=== PATIENT | female | born 1990 | race Caucasian/White ===

== ENCOUNTER 2017-05-25 11:49 | Emergency (ER) | payer SELFPAY ==
--- NOTE | 2017-05-25 12:03 | ER Document Report ---
ED Medical Screen (RME) - General Chief Complaint: Abdominal Pain Stated Complaint: ABDOMINAL PAIN Time Seen by Provider: 05/25/17 12:01 Notes: Patient says she is having burning and itching with urinating but it has been going on for several weeks. She has some lower abdominal pain, as well. Her lower back hurts on both sides. Patient says that she was seen in an emergency room in [place] 2 weeks ago and told him she had the same symptoms and they prescribed a medication which turned her urine all range that she took twice a day for 7 days. She only got that one medication and says they did not check her urinalysis when she was seen that visit. She says her symptoms have not shown any improvement. Says that she has frequent UTIs, as many as 5 a month! No abdominal surgeries. On no regular medications. LMP 1-1/2 weeks ago. Abdomen is soft and nontender anywhere. TRAVEL OUTSIDE OF THE [place] IN LAST 30 DAYS: No - Related Data Allergies/Adverse Reactions: No Known Allergies Allergy (Verified 05/25/17 11:50) Home Medications: Current Home Medications No Home Medications 05/25/17 [History] Physical Exam - Vital signs Vitals: Temp Pulse Resp BP Pulse Ox 98.5 F 114 H 14 123/75 98 05/25/17 11:53 05/25/17 11:53 05/25/17 11:53 05/25/17 11:53 05/25/17 11:53 Course - Vital Signs Vital signs: Temp Pulse Resp BP Pulse Ox 98.5 F 114 H 14 123/75 98 05/25/17 11:53 05/25/17 11:53 05/25/17 11:53 05/25/17 11:53 05/25/17 11:53
[2017-05-25 12:26] LABS: APPEARANCE,URINE SLIGHTLY-CLOUDY; BILIRUBIN,URINE NEGATIVE (NEGATIVE); GLUCOSE, URINE NEGATIVE (NEGATIVE); KETONES,URINE TRACE mg/dL (NEGATIVE); LEUKOCYTE ESTERASE,URINE NEGATIVE (NEGATIVE); NITRITE,URINE NEGATIVE (NEGATIVE); PROTEIN,URINE NEGATIVE (NEGATIVE); URINE SPECIFIC GRAVITY 1.026; UROBILINOGEN,URINE NEGATIVE mg/dL (<2.0)
--- NOTE | 2017-05-25 12:54 | ER Document Report ---
ED General - General Chief Complaint: Abdominal Pain Stated Complaint: ABDOMINAL PAIN Time Seen by Provider: 05/25/17 12:01 TRAVEL OUTSIDE OF THE [place] IN LAST 30 DAYS: No - HPI Patient complains to provider of: Patient coming in for dysuria Notes: Patient complains of burning with urination. Patient states was evaluated in [place] a few days ago started on the pill that made her urine change color patient states she did have improvement then worsening symptoms. Denies any fevers chills nausea vomiting diarrhea. Patient says she did also take an antibiotic she does not know the name of it completed antibiotic. Patient states continues to have dysuria. Patient does have a history of genital herpes. Patient states she does have some sites of herpes outbreak. Patient states she has acyclovir at home however she has not started this medication. Patient states currently sitting sexually active with only 1 partner. Denies any vaginal discharge. - Related Data Allergies/Adverse Reactions: No Known Allergies Allergy (Verified 05/25/17 11:50) Home Medications: Current Home Medications No Home Medications 05/25/17 [History] Past Medical History - Social History Smoking Status: Current Some Day Smoker Chew tobacco use (# tins/day): No Frequency of alcohol use: Occasional Drug Abuse: None Family History: Reviewed & Not Pertinent Patient has suicidal ideation: No Patient has homicidal ideation: No Renal/ Medical History: Denies: Hx Peritoneal Dialysis Review of Systems - Review of Systems Constitutional: No symptoms reported EENT: No symptoms reported Cardiovascular: No symptoms reported Respiratory: No symptoms reported Gastrointestinal: No symptoms reported Genitourinary: Dysuria Female Genitourinary: No symptoms reported Musculoskeletal: No symptoms reported Skin: No symptoms reported Hematologic/Lymphatic: No symptoms reported Neurological/Psychological: No symptoms reported -: Yes All other systems reviewed and negative Physical Exam - Vital signs Vitals: Temp Pulse Resp BP Pulse Ox 98.5 F 114 H 14 123/75 98 05/25/17 11:53 05/25/17 11:53 05/25/17 11:53 05/25/17 11:53 05/25/17 11:53 Interpretation: Normal - General General appearance: Appears well, Alert - HEENT Head: Normocephalic, Atraumatic Eyes: Normal Pupils: PERRL - Respiratory Respiratory status: No respiratory distress Chest status: Nontender Breath sounds: Normal Chest palpation: Normal - Cardiovascular Rhythm: Regular Heart sounds: Normal auscultation Murmur: No - Abdominal Inspection: Normal Distension: No distension Bowel sounds: Normal Tenderness: Nontender Organomegaly: No organomegaly - Genitourinary Notes: Patient deferred - Back Back: Normal, Nontender - Extremities General upper extremity: Normal inspection, Nontender, Normal color, Normal ROM , Normal temperature General lower extremity: Normal inspection, Nontender, Normal color, Normal ROM , Normal temperature, Normal weight bearing. No: Elo's sign - Neurological Neuro grossly intact: Yes Cognition: Normal Orientation: AAOx4 [place] Coma Scale Eye Opening: Spontaneous [place] Coma Scale Verbal: Oriented [place] Coma Scale Motor: Obeys Commands [place] Coma Scale Total: 15 Speech: Normal Motor strength normal: LUE, RUE, LLE, RLE Sensory: Normal - Psychological Associated symptoms: Normal affect, Normal mood - Skin Skin Temperature: Warm Skin Moisture: Dry Skin Color: Normal Course - Re-evaluation Re-evalutation: 05/25/17 17:05 Patient coming in for dysuria. Patient's urinalysis not show any signs of or infection. Urine culture was sent. With the patient's history of genital herpes with signs of an outbreak and did explain to patient more likely she may have a vesicle that is near the urethra causing burning. Did offer pelvic examination however patient declined. Did offer gonorrhea chlamydia testing patient declined patient states she is in a monogamous relationship not worried about STDs. Patient otherwise looks stable for discharge home explained patient take Tylenol Motrin for pain control. Patient was encouraged to start her acyclovir - Vital Signs Vital signs: Temp Pulse Resp BP Pulse Ox 98.6 F 76 16 116/67 99 05/25/17 13:05 05/25/17 13:05 05/25/17 13:05 05/25/17 13:05 05/25/17 13:05 - Laboratory Laboratory results interpreted by me: 05/25/17 12:07 Urine Ketones TRACE H Discharge - Discharge Clinical Impression: Dysuria Diarrhea Qualifiers: Diarrhea type: unspecified type Qualified Code(s): R19.7 - Diarrhea, unspecified Condition: Good Disposition: HOME, SELF-CARE Instructions: Abdominal Pain ([facility]), Diarrhea, Nonspecific ([facility]) Additional Instructions: Your urinalysis did not show any signs of infection today. With your history of genital herpes he may have a slight herpes outbreak around urethra causing the burning. I recommend taking Tylenol Motrin for your pain. Continue to eat yogurt to help out with your diarrhea he may also try to increase fiber to help out with diarrhea. Return to ER symptoms worsen.
[2017-05-25 13:06] VITALS: BP 116/67
== END 2017-05-25 13:05 | disposition home or self-care (01) ==
LOC: ER 11:49
DX: A60.00 Herpesviral infection of urogenital system, unspecified (principal); R30.0 Dysuria; R19.7 Diarrhea, unspecified; F17.200 Nicotine dependence, unspecified, uncomplicated
CPT/HCPCS: 81001; 81025; 87086; 99284

== ENCOUNTER 2018-03-13 13:26 | Emergency (ER) | payer SELFPAY ==
[2018-03-13 15:04] LABS: AMORPHOUS SEDIMENT,URINE 1+ /HPF; APPEARANCE,URINE CLOUDY; BILIRUBIN,URINE NEGATIVE (NEGATIVE); COLOR,URINE YELLOW; GLUCOSE, URINE NEGATIVE (NEGATIVE); KETONES,URINE 20 mg/dL (NEGATIVE); LEUKOCYTE ESTERASE,URINE TRACE (NEGATIVE); NITRITE,URINE NEGATIVE (NEGATIVE); PROTEIN,URINE NEGATIVE (NEGATIVE); URINE SPECIFIC GRAVITY 1.019; UROBILINOGEN,URINE NEGATIVE mg/dL (<2.0)
--- NOTE | 2018-03-13 15:19 | ER Document Report ---
HPI - HPI Pain Level: 2 Notes: Patient is a 27-year-old female who presents with chief complaint of burning with urination for the last 5 days. Patient denies any frequency urgency. Denies any vaginal discharge. Denies any abdominal pain, pelvic pain or flank pain. Patient states that she knows she has a urinary tract infection. - URINARY Urinary: REPORTS: Dysuria, Urgency, Frequency - REPRODUCTIVE Reproductive: DENIES: : Past Medical History - General Information source: Patient - Social History Smoking Status: Current Every Day Smoker Frequency of alcohol use: None Drug Abuse: Marijuana Family History: Reviewed & Not Pertinent Patient has suicidal ideation: No Patient has homicidal ideation: No - Medical History Medical History: Negative Renal/ Medical History: Denies: Hx Peritoneal Dialysis Surgical Hx: Negative - Immunizations Immunizations up to date: Yes Vertical Provider Document - CONSTITUTIONAL Notes: PHYSICAL EXAMINATION: GENERAL: Well-appearing, well-nourished and in no acute distress. HEAD: Atraumatic, normocephalic. EYES: Pupils equal round extraocular movements intact, conjunctiva are normal. ENT: Nares patent NECK: Normal range of motion LUNGS: No respiratory distress Genitourinary: No CVA tenderness. Musculoskeletal: Normal range of motion NEUROLOGICAL: Normal speech, normal gait. PSYCH: Normal mood, normal affect. SKIN: Warm, Dry, normal turgor, no rashes or lesions noted. - INFECTION CONTROL TRAVEL OUTSIDE OF THE [place] IN LAST 30 DAYS: No Course - Re-evaluation Re-evalutation: Urinalysis with trace leukocyte Estrace. Patient is adamant that she has a urinary tract infection patient's physical examination is benign and patient has no CVA tenderness. Patient will be placed on a short course of antibiotics for cystitis. Urine culture will be ordered. Patient will follow up with her primary care provider. - Vital Signs Vital signs: Temp Pulse Resp BP Pulse Ox 98.6 F 70 16 120/78 99 03/13/18 13:35 03/13/18 13:35 03/13/18 13:35 03/13/18 13:35 03/13/18 13:35 - Laboratory Laboratory results interpreted by me: 03/13/18 14:45 Urine Ketones 20 H Ur Leukocyte Esterase TRACE H Discharge - Discharge Clinical Impression: Dysuria Condition: Stable Disposition: HOME, SELF-CARE Additional Instructions: URINARY TRACT INFECTION: Your evaluation indicates that you have a urinary tract infection. This is due to germs growing in the bladder. This is a common problem. This infection usually responds quickly to antibiotics. Your antibiotic should be taken exactly as prescribed. Drink plenty of fluids -- three to four quarts a day. Occasionally, a bladder anesthetic will be prescribed to help stop the feeling of urgency until the antibiotic has a chance to clear the infection. This may cause your urine to be dark orange. Certain urine infections require a culture. If the doctor obtained a culture, the results will be back in two days. You should call to see if a change in treatment is needed. A repeat urinalysis after you finish treatment is often recommended. The physician will let you know if further testing is required. Call the doctor if you develop fever, chills, flank pain, inability to urinate, or blood in the urine. ANTIBIOTIC THERAPY: You have been given an antibiotic prescription. It's important that you take all the medication, unless instructed otherwise by your physician. Failure to complete the entire course can result in relapse of your condition. Common side effects of antibiotics include nausea, intestinal cramping, or diarrhea. Women may develop vaginal yeast infections, and babies can get yeast (thrush) in the mouth following the use of antibiotics. Contact your physician if you develop significant side effects from this medication. Allergy to this antibiotic can result in hives, wheezing, faintness, or itching. If symptoms of allergy occur, stop the medication and call the doctor. CEPHALEXIN: The antibiotic you've been prescribed is a member of the cephalosporin class. This type of antibiotic covers a wide variety of infections, including those of the skin, lungs, and urinary tract. It's useful for staph infections. This antibiotic is slightly similar to the penicillin family. In rare cases , a person who is allergic to penicillin will also be allergic to this medication. If you have had a severe allergic reaction to penicillin, and have not taken this antibiotic since that time, notify your doctor. Antibiotics which cover many germs ("broad spectrum" antibiotics) are more likely to cause diarrhea or "yeast" infections. Women prone to vaginal yeast problems may suffer an attack after taking this antibiotic. In infants, oral thrush (white spots "stuck" on the cheek) or yeast diaper rash may result. See your doctor if these problems occur. Call at once if you develop itching, hives , shortness of breath, or lightheadedness. URINARY ANESTHETIC AGENT: You have been given a medication (Pyridium) for urinary tract discomfort. This medicine numbs the lining of the bladder and urethra, resulting in less pain, burning, and urgency. You may take it as needed, according to instructions. When the symptoms resolve, you can stop this medication (be sure to continue any other medications the doctor has given you). This medicine turns the urine a dark orange. It may stain underwear. Occasionally, it can cause nausea. Return for evaluation if there are any unexpected effects, such as itching, hives, or shortness of breath. FOLLOW-UP CARE: If you have been referred to a physician for follow-up care, call the physician s office for an appointment as you were instructed or within the next two days. If you experience worsening or a significant change in your symptoms, notify the physician immediately or return to the Emergency Department at any time for re-evaluation. Please take medications as prescribed. Increase your fluid intake. We will send your urine for a culture, we will call you if the results are abnormal. Return to the emergency department should you develop flank pain, vomiting, fever or any other symptom that is concerning to you. Prescriptions: Cephalexin Monohydrate [Keflex 500 mg Capsule] 500 mg PO QID #20 capsule Phenazopyridine HCl [Pyridium 100 Mg Tablet] 100 mg PO TID #6 tablet Forms: Return to Work
[2018-03-13 15:45] VITALS: BP 118/75
== END 2018-03-13 15:43 | disposition home or self-care (01) ==
LOC: ER 13:26
DX: R30.0 Dysuria (principal); F17.200 Nicotine dependence, unspecified, uncomplicated
CPT/HCPCS: 81001; 87086; 99283

== ENCOUNTER 2018-06-20 23:36 | Emergency (ER) | payer SELFPAY ==
[2018-06-20 23:55] VITALS: BP 132/78
[2018-06-21] MEDS ORDERED: ACETAMINOPHEN 325 MG TABLET PO ONE (00:55)
[2018-06-21] MEDS ORDERED: ONDANSETRON 4 MG TAB.RAPDIS PO ONE (00:55)
[2018-06-21] MEDS ORDERED: KETOROLAC TROMETHAMINE INJ/PF 30 MG/1 ML SDV IM ONE (00:55)
--- NOTE | 2018-06-21 01:33 | ER Document Report ---
HPI - HPI Time Seen by Provider: 06/21/18 00:45 Pain Level: 5 Notes: Patient is a 27-year-old female no significant past medical history aside from migraines presents the emergency department complaining of dry nonproductive cough that can be harsh in nature at times, right shoulder blade pain with movement of her right arm, body aches, and subjective fever. Patient states that all of her symptoms started over the last day with exception to the right shoulder blade pain which has been ongoing for the last few days without any known injury. Patient states that she has also developed a mild headache and has a history of migraines, but states that this is not as severe as 1 of her typical migraines but is similar. Denies any drug allergies. Patient has tried some [id number] meds with minimal relief. She is still able to eat and drink, but does have a decreased p.o. intake. Patient states that she did have one episode of vomiting. She is urinating normally and having normal bowel movements. No other vaginal discharge, odor, or bleeding. No CP as compared to what was described at [facility]. Denies any headache, fever, head injury, neck pain, changes in vision/speech/mentation/hearing, sore throat, chest pain, palpitations, syncope, shortness of breath, wheeze, dyspnea, abdominal pain, nausea/diarrhea, urinary retention, dysuria, hematuria, loss of control of bowel or bladder, numbness/tingling, saddle anesthesia, muscle paralysis/weakness, or rash. - ROS Systems Reviewed and Negative: Yes All other systems reviewed and negative - REPRODUCTIVE Reproductive: DENIES: : Past Medical History - Social History Smoking Status: Unknown if Ever Smoked Family History: Reviewed & Not Pertinent Renal/ Medical History: Denies: Hx Peritoneal Dialysis - Immunizations Immunizations up to date: Yes Vertical Provider Document - CONSTITUTIONAL Agree With Documented VS: Yes Notes: PHYSICAL EXAMINATION: GENERAL: Well-appearing, well-nourished and in no acute distress. A&Ox4. Answers questions appropriately. HEAD: Atraumatic, normocephalic. EYES: Pupils equal round and reactive to light, extraocular movements intact, sclera anicteric, conjunctiva are normal. ENT: Nares patent and without discharge. oropharynx clear without exudates. No tonsilar hypertrophy or erythema. Moist mucous membranes. No airway compromise. NECK: Normal range of motion, supple without lymphadenopathy. no rigidity/meningismus. Kernig/brudzinski neg. LUNGS: Breath sounds clear to auscultation bilaterally and equal. No wheezes rales or rhonchi. HEART: Regular rate and rhythm without murmurs, rubs, gallops. ABDOMEN: Soft, nontender, nondistended abdomen. No guarding, no rebound. No masses appreciated. Normal bowel sounds present. No CVA tenderness bilaterally. Musculoskeletal: Rt UE: FROM to passive/active. Strength 5+/5. + reproducible tenderness to palp of the medial scapular area and with ROM of the RUE. N/v intact distal. LE's b/l: Elo neg. No asymmetry to LE's. Extremities: No cyanosis, clubbing, or edema b/l. Peripheral pulses 2+. Capillary refill less than 3 seconds. NEUROLOGICAL: Normal speech, normal gait. PSYCH: Normal mood, normal affect. SKIN: Warm, Dry, normal turgor, no rashes or lesions noted. - INFECTION CONTROL TRAVEL OUTSIDE OF THE [place] IN LAST 30 DAYS: No Course - Re-evaluation Re-evalutation: 06/21/18 01:59 Patient is an afebrile, well-hydrated, 27-year-old female who presents to the ED with acute URI, suspect viral. She also has musculoskeletal pain to the rt scapular area that is reproducible and a headache which I suspect to be benign. Vitals are acceptable. PE is otherwise unremarkable for any focal neurological deficits. Cranial nerves grossly intact. No labs or imaging warranted at this time based on H&P. Patient has no significant cardiopulmonary or immunocompromised medical conditions. Patient's lungs are clear to auscultation bilaterally without tachycardia, hypoxia, or tachypnea. Patient is tolerating p.o. without any difficulties. Thoroughly reviewed the risks, benefits, potential side effects, estimated cost without insurance with patient. After thorough review, patient declined Tamiflu at this time. Pt given toradol, tylenol, and zofran. Her PEDERSEN and body aches have significantly improved. Low suspicion for any acute intracranial pathology, meningitis, sepsis, peritonsillar/pharyngeal abscess, respiratory compromise, severe dehydration, or other emergent systemic condition at this time. Patient is aware this condition can change from initial presentation and she needs to monitor symptoms closely. Conservative measures otherwise for symptoms. Recheck with your PCM in 3-5 days. Return to the ED with any worsening/concerning symptoms otherwise as reviewed in discharge. Patient is in agreement. - Vital Signs Vital signs: Temp Pulse Resp BP Pulse Ox 99.4 F 74 22 H 132/78 H 97 06/20/18 23:44 06/20/18 23:44 06/20/18 23:44 06/20/18 23:44 06/20/18 23:44 Discharge - Discharge Clinical Impression: Cough, Viral syndrome Headache Qualifiers: Headache type: unspecified Headache chronicity pattern: acute headache Intractability: not intractable Qualified Code(s): R51 - Headache Condition: Stable Disposition: HOME, SELF-CARE Instructions: Viral Syndrome ([facility]), Headache ([facility]) Additional Instructions: Maintain adequate fluid intake Take meds as directed tylenol/ibuprofen as needed over the counter cold medication as needed for symptoms Humidified air may help Wash your hands regularly Wear a mask when coughing F/u: with your PCM in 3-5 days for a recheck Return to the ED with any worsening symptoms and/or development of fever, headache, changes in behavior/mentation/vision/speech, chest pain, palpitations, syncope, shortness of breath, trouble breathing, abdominal pain, n/v/d, blood in stool/urine, loss of control of bowel/bladder, urinary retention, muscle weakness/paralysis, saddle anesthesia, numbness/tingling, or other worsening symptoms that are concerning to you. Forms: Elevated Blood Pressure Referrals: [facility] [Provider Group] - Follow up as needed [facility] [Provider Group] - Follow up as needed
== END 2018-06-21 02:45 | disposition home or self-care (01) ==
LOC: ER 23:36
DX: B34.9 Viral infection, unspecified (principal); R05 Cough; R51 Headache
CPT/HCPCS: 99283; 96372; S0119; J1885

== ENCOUNTER 2018-06-22 11:48 | Emergency (ER) | payer SELFPAY ==
[2018-06-22 12:03] VITALS: BP 121/80
[2018-06-22] MEDS ORDERED: PROMETHAZINE HCL 25 MG TABLET PO ONE (12:08)
[2018-06-22] MEDS ORDERED: NORMAL SALINE 1000 ML 1,000 ML IV ONE (12:10)
--- NOTE | 2018-06-22 12:10 | ER Document Report ---
ED Medical Screen (RME) - General Chief Complaint: Abdominal Pain Stated Complaint: CHEST PAIN Time Seen by Provider: 06/22/18 12:07 Mode of Arrival: Ambulatory Information source: Patient TRAVEL OUTSIDE OF THE [place] IN LAST 30 DAYS: No - HPI Patient complains to provider of: CP; cough; vomiting Onset: Yesterday - pt with 1-2 day h/o cough, CP. N/V - Related Data Allergies/Adverse Reactions: No Known Allergies Allergy (Verified 06/20/18 23:38) Past Medical History - Social History Chew tobacco use (# tins/day): No Frequency of alcohol use: None Drug Abuse: Marijuana Renal/ Medical History: Denies: Hx Peritoneal Dialysis Psychiatric Medical History: Reports: Hx Depression - Immunizations Immunizations up to date: Yes Physical Exam - Vital signs Vitals: Temp Pulse Resp BP Pulse Ox 100.3 F 105 H 16 121/80 95 06/22/18 12:01 06/22/18 12:01 06/22/18 12:01 06/22/18 12:01 06/22/18 12:01 Course - Vital Signs Vital signs: Temp Pulse Resp BP Pulse Ox 100.3 F 105 H 16 121/80 95 06/22/18 12:01 06/22/18 12:01 06/22/18 12:01 06/22/18 12:01 06/22/18 12:01
--- NOTE | 2018-06-22 12:52 | RADIOLOGY REPORT (SQ) ---
EXAM DESCRIPTION: CHEST 2 VIEWS COMPLETED DATE/TIME: 06/22/2018 12:42 pm REASON FOR STUDY: cough; fever COMPARISON: None. EXAM PARAMETERS: NUMBER OF VIEWS: two views TECHNIQUE: Digital Frontal and Lateral radiographic views of the chest acquired. RADIATION DOSE: NA LIMITATIONS: none FINDINGS: LUNGS AND PLEURA: No opacities, masses or pneumothorax. No pleural effusion. MEDIASTINUM AND HILAR STRUCTURES: No masses or contour abnormalities. HEART AND VASCULAR STRUCTURES: Heart normal size. No evidence for failure. BONES: No acute findings. HARDWARE: None in the chest. OTHER: No other significant finding. IMPRESSION: NO ACUTE RADIOGRAPHIC FINDING IN THE CHEST. TECHNICAL DOCUMENTATION: JOB ID: [id number] [employer]- All Rights Reserved Reading location - IP/workstation name: [email or web address]
[2018-06-22 13:38] LABS: ABSOLUTE LYMPHOCYTES (AUTO) 0.8 10^3/uL (0.5-4.7); ABSOLUTE MONOCYTES (AUTO) 0.5 10^3/uL (0.1-1.4); ABSOLUTE NEUT (AUTO) 4.7 10^3/uL (1.7-8.2); BASOPHILS % (AUTO) 0.2 % (0-2); HEMATOCRIT 37.3 % (36.0-47.0); HEMOGLOBIN 12.7 g/dL (12.0-15.5); LYMPHOCYTES % (AUTO) 12.8 % (13-45); MEAN CORPUSCULAR HEMOGLOBIN 30.8 pg (27.0-33.4); MEAN CORPUSCULAR VOLUME 91 fl (80-97); PLATELET COUNT 158 10^3/uL (150-450); RED BLOOD COUNT 4.12 10^6/uL (3.72-5.28); RED CELL DISTRIBUTION WIDTH 13.3 % (11.5-14.0); TOTAL CELLS COUNTED % (AUTO) 100 %
[2018-06-22 13:44] LABS: APPEARANCE,URINE SLIGHTLY-CLOUDY; BILIRUBIN,URINE SMALL (NEGATIVE); COLOR,URINE YELLOW; GLUCOSE, URINE NEGATIVE (NEGATIVE); KETONES,URINE 80 mg/dL (NEGATIVE); LEUKOCYTE ESTERASE,URINE NEGATIVE (NEGATIVE); NITRITE,URINE NEGATIVE (NEGATIVE); PROTEIN,URINE 30 mg/dL (NEGATIVE); URINE SPECIFIC GRAVITY 1.035
[2018-06-22 13:49] LABS: ALANINE AMINOTRANSFERASE 32 U/L (9-52); ALBUMIN 4.6 g/dL (3.5-5.0); ALKALINE PHOSPHATASE 65 U/L (38-126); ANION GAP 11 (5-19); ASPARTATE AMINO TRANSFERASE 27 U/L (14-36); BILIRUBIN,DIRECT 0.1 mg/dL (0.0-0.4); BILIRUBIN,TOTAL 0.5 mg/dL (0.2-1.3); BLOOD UREA NITROGEN 11 mg/dL (7-20); CALCIUM 9.2 mg/dL (8.4-10.2); CARBON DIOXIDE 23 mmol/L (22-30); CHLORIDE 101 mmol/L (98-107); GLUCOSE 95 mg/dL (75-110); POTASSIUM 3.9 mmol/L (3.6-5.0); SODIUM 135.3 mmol/L (137-145); TOTAL PROTEIN 7.3 g/dL (6.3-8.2)
[2018-06-22 13:53] LABS: A TYPE INFLUENZA AG NEGATIVE (NEGATIVE); B INFLUENZA AG NEGATIVE (NEGATIVE)
[2018-06-22] MEDS ORDERED: KETOROLAC TROMETHAMINE INJ/PF 30 MG/1 ML SDV IV ONE (14:50)
[2018-06-22] MEDS ORDERED: NORMAL SALINE 500 ML IV ONE (14:50)
[2018-06-22] MEDS ORDERED: ONDANSETRON ODT 4 MG TAB (6 TAB/ER DISP) PO PRN (15:14)
--- NOTE | 2018-06-22 15:15 | ER Document Report ---
ED General - General Chief Complaint: Abdominal Pain Stated Complaint: CHEST PAIN Time Seen by Provider: 06/22/18 12:07 Mode of Arrival: Ambulatory Notes: Patient is a 27-year-old female that presents to the emergency department for chief complaint of chills, body aches, cough and thinks she has the flu. Patient states that she started having symptoms on Saturday around 4 PM after getting up for work, she had cough, nausea, vomiting and diarrhea. She states it was all watery, non-bloody, nonbilious vomiting. She is unaware of any sick contacts, did not receive the influenza vaccine this year. She has had aches all over. She had a hard time hydrating herself for the past 2 days, but did not have any vomiting today. She has some abdominal cramping, that she rates currently as a 3 out of 10, in the lower abdomen, that seem to come along with the diarrhea. Past Medical History: Denies chronic medical conditions Past Surgical History: Denies surgical history Social History: Denies tobacco, alcohol or illicit drug use. Family History: Reviewed and noncontributory for presenting illness Allergies: Reviewed, see documented allergy list. REVIEW OF SYSTEMS: Other than noted above, the 12 point review of systems was reviewed with the patient and were negative, all pertinent findings are included in the HPI. PHYSICAL EXAMINATION: Vital signs reviewed, nursing noted reviewed. GENERAL: Patient appears uncomfortable, but in no acute distress HEAD: Atraumatic, normocephalic. EYES: Eyes appear normal, extraocular movements intact, sclera anicteric, conjunctiva are normal. ENT: nares patent, oropharynx clear without exudates. Moist mucous membranes. NECK: Normal range of motion, supple without lymphadenopathy LUNGS: Breath sounds clear to auscultation bilaterally and equal. No wheezes rales or rhonchi. HEART: Regular rate and rhythm without murmurs ABDOMEN: Soft, mild lower abdominal discomfort with palpation bilaterally, normoactive bowel sounds. No rebound, guarding, or rigidity. No masses appreciated. EXTREMITIES: Nontender, good range of motion, no pitting or edema. NEUROLOGICAL: No focal neurological deficits. Moves all extremities spontaneously Motor and sensory grossly intact on exam. PSYCH: Normal mood, normal affect. SKIN: Warm, Dry, normal turgor, no rashes or lesions noted on exposed skin TRAVEL OUTSIDE OF THE [place] IN LAST 30 DAYS: No - Related Data Allergies/Adverse Reactions: No Known Allergies Allergy (Verified 06/20/18 23:38) Past Medical History - General Information source: Patient - Social History Smoking Status: Current Every Day Smoker Chew tobacco use (# tins/day): No Frequency of alcohol use: None Drug Abuse: Marijuana Family History: Reviewed & Not Pertinent Patient has suicidal ideation: No Patient has homicidal ideation: No Renal/ Medical History: Denies: Hx Peritoneal Dialysis Psychiatric Medical History: Reports: Hx Depression - Immunizations Immunizations up to date: Yes Physical Exam - Vital signs Vitals: Temp Pulse Resp BP Pulse Ox 100.3 F 105 H 16 121/80 95 06/22/18 12:06/22/18 12:06/22/18 12:01 06/22/18 12:06/22/18 12:01 Course - Re-evaluation Re-evalutation: Patient seen and examined vital signs reviewed. Laboratory data and imaging were ordered as appropriate for the patient's presenting symptoms and complaint, with consideration of any critical or life threatening conditions that may be associated with their obtained history and exam as noted above. Patient was treated with IV fluids, Phenergan Results were reviewed when available and demonstrated unremarkable blood work, UA was consistent with dehydration, positive for ketones, hCG negative, no evidence of acute infection on blood work, chest x-ray was negative. The patient was re-evaluated and was improved after IV fluids, refused Toradol Evaluation was most consistent with influenza versus viral illness. Advised hydration at home, given Zofran dispense pack and discharged home. Results were discussed with the patient at this point, after careful consid eration I feel that that patient can be discharged from the emergency department, the patient was educated treatments and reasons to return to the emergency department based on their presumed diagnosis as noted above, they were advised to followup with a primary care physician in 2-3 days. Patient was agreeable to plan of care. *Note is created using voice recognition software and may contain spelling, syntax or grammatical errors. Laboratory 06/22/18 06/22/18 06/22/18 13:10 13:10 13:20 WBC 6.0 RBC 4.12 Hgb 12.7 Hct 37.3 MCV 91 MCH 30.8 MCHC 34.0 RDW 13.3 Plt Count 158 Seg Neutrophils % 78.0 Lymphocytes % 12.8 L Monocytes % 9.0 Eosinophils % 0.0 Basophils % 0.2 Absolute Neutrophils 4.7 Absolute Lymphocytes 0.8 Absolute Monocytes 0.5 Absolute Eosinophils 0.0 Absolute Basophils 0.0 Sodium 135.3 L Potassium 3.9 Chloride 101 Carbon Dioxide 23 Anion Gap 11 BUN 11 Creatinine 0.65 Est GFR ( Amer) > 60 Est GFR (Non-Af Amer) > 60 Glucose 95 Calcium 9.2 Total Bilirubin 0.5 Direct Bilirubin 0.1 Neonat Total Bilirubin Not Reportable Neonat Direct Bilirubin Not Reportable Neonat Indirect Bili Not Reportable AST 27 ALT 32 Alkaline Phosphatase 65 Total Protein 7.3 Albumin 4.6 Urine Color Urine Appearance Urine pH Ur Specific [employer] Urine Protein Urine Glucose (UA) Urine Ketones Urine Blood Urine Nitrite Urine Bilirubin Urine Urobilinogen Ur Leukocyte Esterase Urine WBC (Auto) Urine RBC (Auto) U Hyaline Cast (Auto) Squamous Epi Cells Auto Urine Mucus (Auto) Urine Ascorbic Acid Urine HCG, Qual Influenza A (Rapid) NEGATIVE Influenza B (Rapid) NEGATIVE 06/22/18 13:20 WBC RBC Hgb Hct MCV MCH MCHC RDW Plt Count Seg Neutrophils % Lymphocytes % Monocytes % Eosinophils % Basophils % Absolute Neutrophils Absolute Lymphocytes Absolute Monocytes Absolute Eosinophils Absolute Basophils Sodium Potassium Chloride Carbon Dioxide Anion Gap BUN Creatinine Est GFR ( Amer) Est GFR (Non-Af Amer) Glucose Calcium Total Bilirubin Direct Bilirubin Neonat Total Bilirubin Neonat Direct Bilirubin Neonat Indirect Bili AST ALT Alkaline Phosphatase Total Protein Albumin Urine Color YELLOW Urine Appearance SLIGHTLY-CLOUDY Urine pH 5.0 Ur Specific [employer] 1.035 Urine Protein 30 H Urine Glucose (UA) NEGATIVE Urine Ketones 80 H Urine Blood SMALL H Urine Nitrite NEGATIVE Urine Bilirubin SMALL H Urine Urobilinogen 2.0 H Ur Leukocyte Esterase NEGATIVE Urine WBC (Auto) 3 Urine RBC (Auto) 1 U Hyaline Cast (Auto) 1 Squamous Epi Cells Auto 5 Urine Mucus (Auto) MANY Urine Ascorbic Acid NEGATIVE Urine HCG, Qual NEGATIVE Influenza A (Rapid) Influenza B (Rapid) Chest X-Ray 06/22/18 12:07 IMPRESSION: NO ACUTE RADIOGRAPHIC FINDING IN THE CHEST. - Vital Signs Vital signs: Temp Pulse Resp BP Pulse Ox 100.3 F 105 H 16 121/80 95 06/22/18 12:01 06/22/18 12:01 06/22/18 12:01 06/22/18 12:01 06/22/18 12:01 - Laboratory Result Diagrams: 06/22/18 13:10 06/22/18 13:10 Laboratory results interpreted by me: 06/22/18 06/22/18 06/22/18 13:10 13:10 13:20 Lymphocytes % 12.8 L Sodium 135.3 L Urine Protein 30 H Urine Ketones 80 H Urine Blood SMALL H Urine Bilirubin SMALL H Urine Urobilinogen 2.0 H - EKG Interpretation by Me Additional EKG results interpreted by me: EKG demonstrates sinus rhythm with a ventricular rate of 77 bpm, underlying right axis deviation, normal intervals, no evidence of acute ischemia on this EKG. No prior for comparison. Discharge - Discharge Clinical Impression: Influenza Condition: Stable Disposition: HOME, SELF-CARE Instructions: Influenza ([facility]) Additional Instructions: Please return to the emergency department if you have any worsening, or concern of your symptoms. Please return to the emergency department if you develop chest pain, difficulty breathing, severe abdominal pain, or ongoing vomiting. Please follow-up with your primary care physician in 2-3 days and any other recommended physicians. If prescribed, take all medications as directed. If you have any questions or concerns do not hesitate to return the emergency department for evaluation. Referrals: HANNY ADO MD [ACTIVE STAFF] - Follow up in 3-5 days (PRIMARY CARE. )
--- NOTE | 2018-06-22 23:48 | EKG REPORT ---
SEVERITY:- OTHERWISE NORMAL ECG - SINUS RHYTHM BORDERLINE RIGHT AXIS DEVIATION : Confirmed by: Regine Moran 22-Jun-2018 23:47:49
== END 2018-06-22 17:52 | disposition home or self-care (01) ==
LOC: ER 11:48
DX: J11.1 Influenza due to unidentified influenza virus with other respiratory manifestations (principal); R05 Cough; R11.2 Nausea with vomiting, unspecified; R19.7 Diarrhea, unspecified; R07.9 Chest pain, unspecified; R10.30 Lower abdominal pain, unspecified; F17.200 Nicotine dependence, unspecified, uncomplicated
CPT/HCPCS: 93005; 99284; 96360; 36415; 85025; 81025; 80053; 81001; 87804; 71046; 93010; J7030

== ENCOUNTER 2018-12-01 08:44 | Emergency (ER) | payer SELFPAY ==
[2018-12-01 08:50] VITALS: BP 128/88
== END 2018-12-01 10:38 | disposition left against medical advice (07) ==
LOC: ER 08:44
DX: Z53.21 Procedure and treatment not carried out due to patient leaving prior to being seen by health care provider (principal)

== ENCOUNTER 2018-12-01 16:28 | Emergency (ER) | payer SELFPAY ==
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
[2018-12-01] MEDS ORDERED: ONDANSETRON 4 MG TAB.RAPDIS PO ONE (19:09)
[2018-12-01] MEDS ORDERED: IBUPROFEN 600 MG TABLET PO ONE (19:09)
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
[2018-12-01 19:31] VITALS: BP 125/70
== END 2018-12-01 19:32 | disposition home or self-care (01) ==
LOC: ER 16:28
DX: R51 Headache (principal)
CPT/HCPCS: 70450; 70486; 99284

== ENCOUNTER 2019-02-01 06:23 | Emergency (ER) | payer MEDICAID ==
[2019-02-01 07:13] LABS: ABSOLUTE EOSINOPHILS # (AUTO) 0.1 10^3/uL (0.0-0.6); ABSOLUTE LYMPHOCYTES (AUTO) 2.5 10^3/uL (0.5-4.7); ABSOLUTE MONOCYTES (AUTO) 0.4 10^3/uL (0.1-1.4); ABSOLUTE NEUT (AUTO) 4.2 10^3/uL (1.7-8.2); BASOPHILS % (AUTO) 0.5 % (0-2); EOSINOPHILS % (AUTO) 1.2 % (0-6); HEMATOCRIT 37.6 % (36.0-47.0); HEMOGLOBIN 12.7 g/dL (12.0-15.5); LYMPHOCYTES % (AUTO) 34.1 % (13-45); MEAN CORPUSCULAR HEMOGLOBIN 30.8 pg (27.0-33.4); MEAN CORPUSCULAR HGB CONC 33.9 g/dL (32.0-36.0); MEAN CORPUSCULAR VOLUME 91 fl (80-97); MONOCYTES % (AUTO) 5.7 % (3-13); PLATELET COUNT 217 10^3/uL (150-450); RED BLOOD COUNT 4.13 10^6/uL (3.72-5.28); RED CELL DISTRIBUTION WIDTH 13.8 % (11.5-14.0); SEGMENTED NEUTROPHILS % (AUTO) 58.5 % (42-78); TOTAL CELLS COUNTED % (AUTO) 100 %; WHITE BLOOD COUNT 7.2 10^3/uL (4.0-10.5)
[2019-02-01 07:21] LABS: APPEARANCE,URINE SLIGHTLY-CLOUDY; BILIRUBIN,URINE NEGATIVE (NEGATIVE); COLOR,URINE YELLOW; GLUCOSE, URINE NEGATIVE (NEGATIVE); KETONES,URINE NEGATIVE (NEGATIVE); LEUKOCYTE ESTERASE,URINE NEGATIVE (NEGATIVE); NITRITE,URINE NEGATIVE (NEGATIVE); PROTEIN,URINE NEGATIVE (NEGATIVE); UROBILINOGEN,URINE NEGATIVE mg/dL (<2.0)
[2019-02-01 07:31] LABS: ALBUMIN 4.5 g/dL (3.5-5.0); ALKALINE PHOSPHATASE 38 U/L (38-126); ANION GAP 11 (5-19); ASPARTATE AMINO TRANSFERASE 24 U/L (14-36); BILIRUBIN,DIRECT 0.3 mg/dL (0.0-0.4); BILIRUBIN,TOTAL 0.6 mg/dL (0.2-1.3); BLOOD UREA NITROGEN 10 mg/dL (7-20); CALCIUM 9.4 mg/dL (8.4-10.2); CARBON DIOXIDE 24 mmol/L (22-30); CHLORIDE 103 mmol/L (98-107); GLUCOSE 88 mg/dL (75-110); POTASSIUM 4.4 mmol/L (3.6-5.0); TOTAL PROTEIN 7.2 g/dL (6.3-8.2)
--- NOTE | 2019-02-01 07:57 | ER Document Report ---
Entered by JESUS GALICIA SCRIBE 02/01/19 0753 Acting as scribe for:ANDREEA TOBIAS MD ED GI/ - General Chief Complaint: OB Problem (<20wks) Stated Complaint: ABDOMINAL CRAMPING Time Seen by Provider: 02/01/19 07:18 Mode of Arrival: Ambulatory Information source: Patient Notes: Patient is a 28-year-old female that presents to the emergency department today with complaints of abdominal cramping. Patient is . Patient states her abdominal cramping began "as soon as I found out I was ". Patient states she is "beginning to think this cramping has to do with finding out she is ". Patient states she has had x2 episodes of vomiting with lots of nausea, mainly at night. Patient states she has had urinary frequency but denies any vaginal bleeding. TRAVEL OUTSIDE OF THE [place] IN LAST 30 DAYS: No - Related Data Allergies/Adverse Reactions: No Known Allergies Allergy (Verified 12/01/18 16:29) Past Medical History - General Information source: Patient - Social History Smoking Status: Unknown if Ever Smoked Cigarette use (# per day): No Chew tobacco use (# tins/day): No Frequency of alcohol use: None Drug Abuse: Marijuana Lives with: Family Family History: Reviewed & Not Pertinent Patient has suicidal ideation: No Patient has homicidal ideation: No Psychiatric Medical History: Reports: Hx Depression - Immunizations Immunizations up to date: Yes Review of Systems - Review of Systems Constitutional: No symptoms reported EENT: No symptoms reported Cardiovascular: No symptoms reported Respiratory: No symptoms reported Gastrointestinal: See HPI, Abdominal pain, Nausea, Vomiting Genitourinary: See HPI, Frequency Female Genitourinary: See HPI, Last menstrual period - LMP 12/19, . denies: Vaginal bleeding Musculoskeletal: No symptoms reported Skin: No symptoms reported Hematologic/Lymphatic: No symptoms reported Neurological/Psychological: No symptoms reported -: Yes All other systems reviewed and negative Physical Exam - Vital signs Vitals: Temp Pulse Resp BP Pulse Ox 97.6 F 87 16 129/69 H 97 02/01/19 06:29 02/01/19 06:29 02/01/19 06:29 02/01/19 06:29 02/01/19 06:29 - Notes Notes: Physical Exam: General: Alert, appears well. HEENT: Normocephalic. Atraumatic. PERRL. Extraocular movements intact. Oropharynx clear. Neck: Supple. Non-tender. Respiratory: No respiratory distress. Clear and equal breath sounds bilaterally. Cardiovascular: Regular rate and rhythm. Abdominal: Normal Inspection. Non-tender. No distension. Normal Bowel Sounds. Back: No gross abnormalities. Extremities: Moves all four extremities. Upper extremities: Normal inspection. Normal ROM. Lower extremities: Normal inspection. No edema. Normal ROM. Neurological: Normal cognition. AAOx4. Normal speech. Psychological: Normal affect. Normal Mood. Skin: Warm. Dry. Normal color. Course - Vital Signs Vital signs: Temp Pulse Resp BP Pulse Ox 97.6 F 87 16 129/69 H 97 02/01/19 06:29 02/01/19 06:29 02/01/19 06:29 02/01/19 06:29 02/01/19 06:29 - Laboratory Result Diagrams: 02/01/19 07:00 02/01/19 07:00 Laboratory results interpreted by me: 02/01/19 02/01/19 07:00 07:00 Serum HCG, Qual POSITIVE H Beta HCG, Quant 70658.00 H - Diagnostic Test Radiology reviewed: Reports reviewed - Transvaginal ultrasound shows a 6-week 2- day intrauterine with heart rate of 106. There are no abnormalities noted. There is no subchorionic bleed. Discharge - Discharge Clinical Impression: with 6 completed weeks gestation Condition: Stable Disposition: HOME, SELF-CARE Additional Instructions: You are . care is best started as early in as possible. If you're unsure about continuing this , you should discuss this with your physician or with lacquer machine feeder at [facility]. You should take only medications approved by your physician. Acetaminophen can safely be taken for minor pains. As a rule, medication for chronic conditions such as asthma or seizures can safely be continued. You should discuss with the physician every medicine you take. Any regular exercise program can be continued. Talk to your physician, however, before engaging in competitive or demanding sports. Alcohol, smoking, and "street drugs" are dangerous to your baby. Cocaine is especially dangerous. Don't use any illicit drugs! Your ultrasound shows a 6-week 2-day intrauterine with a heart rate of 106. There were no abnormalities noted on this ultrasound. You should drink plenty of fluids and get plenty of rest until you do not have cramps. Follow-up with the health department or with [facility] this week for recheck. RETURN TO THE EMERGENCY ROOM IF ANY NEW OR WORSENING SYMPTOMS. Referrals: [facility] [Provider Group] - Follow up in 3-5 days [facility] [Outside] - Follow up in 3-5 days Scribe Attestation: 02/01/19 07:57 I personally performed the services described in the documentation, reviewed and edited the documentation which was dictated to the scribe in my presence, and it accurately records my words and actions. I personally performed the services described in the documentation, reviewed and edited the documentation which was dictated to the scribe in my presence, and it accurately records my words and actions.
--- NOTE | 2019-02-01 08:27 | RADIOLOGY REPORT (SQ) ---
EXAM DESCRIPTION: U/S OB TRANSVAGINAL W/O DOP COMPLETED DATE/TIME: 02/01/2019 8:07 am REASON FOR STUDY: 6wks, cramps COMPARISON: None. TECHNIQUE: Transvaginal static and realtime grayscale images acquired of the pelvis. Additional emory cted spectral and color Doppler images recorded. All images stored on PACs. bHCG: Pending. CLINICAL DATES: 6 week 2 day. LIMITATIONS: None. FINDINGS: FETUS: Single Living intrauterine . ULTRASOUND EGA: 6 week 3 day. ULTRASOUND CHRISTIAN: 09/24/2019. EFW: Not applicable less than 20 weeks. CRL: 0.63 cm. FHR: 106 beats per minute. SURVEY: No visualized anomalies. AMNIOTIC FLUID: Adequate amount. PLACENTA: Not yet developed due to early gestation. SUBCHORIONIC BLEED: No. SIZE OF BLEED: Not applicable. UTERUS: No masses. No anomalies. CERVICAL LENGTH: 3.4 cm. Closed. RIGHT ADNEXA: Normal ovary with normal vascular flow. No adnexal free fluid. No adnexal masses. LEFT ADNEXA: Normal ovary with normal vascular flow. No adnexal free fluid. 2.7 cm cyst. FREE FLUID: None. OTHER: No other significant finding. IMPRESSION: LIVING INTRAUTERINE . EGA 6 WEEK 3 DAY Trimester of : First trimester - 0 to 13 weeks. TECHNICAL DOCUMENTATION: JOB ID: [id number] [employer]- All Rights Reserved rev-10/18 Reading location - IP/workstation name: [email or web address]
[2019-02-01 09:27] VITALS: BP 119/65
== END 2019-02-01 09:27 | disposition home or self-care (01) ==
LOC: ER 06:23
DX: O26.891 Other specified pregnancy related conditions, first trimester (principal); R10.9 Unspecified abdominal pain; R35.0 Frequency of micturition; O21.9 Vomiting of pregnancy, unspecified; O99.321 Drug use complicating pregnancy, first trimester; F12.10 Cannabis abuse, uncomplicated; Z3A.01 Less than 8 weeks gestation of pregnancy
CPT/HCPCS: 36415; 76817; 80053; 81001; 84702; 84703; 85025; 86900; 86901; 99284

== ENCOUNTER 2019-02-02 11:15 | Emergency (ER) | payer MEDICAID ==
[2019-02-02] MEDS ORDERED: METOCLOPRAMIDE HCL INJ/PF 10 MG/2 ML SDV IV ONE (11:39)
[2019-02-02] MEDS ORDERED: NORMAL SALINE 1000 ML 1,000 ML IV ONE ×2 (11:39→12:32)
--- NOTE | 2019-02-02 11:42 | ER Document Report ---
ED Medical Screen (RME) - General Chief Complaint: Nausea/Vomiting Stated Complaint: VOMITING Time Seen by Provider: 02/02/19 11:35 Notes: Patient is a 28-year-old female who presents to the emergency department with a chief complaint of nausea and vomiting. Patient states she was seen here yesterday with a normal ultrasound and was told everything was okay. Patient states she is about 6 weeks and denies vaginal bleeding or discharge. Patient reports her last menstrual cycle was December 19. Patient states every hour she is continued to dry heave and is able to tolerate liquids or food. Patient reports extreme nausea. Patient reports she is having a bowel movement every 1- 2 hours which is a normal consistency and is not diarrhea. Patient states she does not feel well and she feels extremely dehydrated. TRAVEL OUTSIDE OF THE [place] IN LAST 30 DAYS: No - Related Data Allergies/Adverse Reactions: No Known Allergies Allergy (Verified 02/02/19 11:15) Past Medical History Renal/ Medical History: Denies: Hx Peritoneal Dialysis Psychiatric Medical History: Reports: Hx Depression - Immunizations Immunizations up to date: Yes Physical Exam - Vital signs Vitals: Temp Pulse Resp BP Pulse Ox 98.2 F 78 24 H 132/78 H 99 02/02/19 11:02/02/19 11:02/02/19 11:02/02/19 11:02/02/19 11:29 - Abdominal Inspection: Normal Distension: No distension Bowel sounds: Hyperactive Tenderness: Nontender Organomegaly: No organomegaly Course - Re-evaluation Re-evalutation: 02/02/19 11:41 I have greeted and performed a rapid initial assessment of this patient. A comprehensive ED assessment and evaluation of the patient, analysis of test results and completion of the medical decision making process will be conducted by additional ED providers. - Vital Signs Vital signs: Temp Pulse Resp BP Pulse Ox 98.2 F 78 24 H 132/78 H 99 02/02/19 11:02/02/19 11:02/02/19 11:02/02/19 11:02/02/19 11:29
[2019-02-02 12:20] LABS: ABSOLUTE LYMPHOCYTES (AUTO) 1.8 10^3/uL (0.5-4.7); ABSOLUTE MONOCYTES (AUTO) 0.5 10^3/uL (0.1-1.4); BASOPHILS % (AUTO) 0.4 % (0-2); EOSINOPHILS % (AUTO) 0.1 % (0-6); HEMATOCRIT 40.4 % (36.0-47.0); HEMOGLOBIN 13.8 g/dL (12.0-15.5); LYMPHOCYTES % (AUTO) 19.5 % (13-45); MEAN CORPUSCULAR HEMOGLOBIN 30.9 pg (27.0-33.4); MEAN CORPUSCULAR HGB CONC 34.2 g/dL (32.0-36.0); MEAN CORPUSCULAR VOLUME 90 fl (80-97); MONOCYTES % (AUTO) 5.1 % (3-13); PLATELET COUNT 240 10^3/uL (150-450); RED BLOOD COUNT 4.47 10^6/uL (3.72-5.28); RED CELL DISTRIBUTION WIDTH 14.1 % (11.5-14.0); SEGMENTED NEUTROPHILS % (AUTO) 74.9 % (42-78); TOTAL CELLS COUNTED % (AUTO) 100 %; WHITE BLOOD COUNT 9.3 10^3/uL (4.0-10.5)
[2019-02-02 12:24] LABS: APPEARANCE,URINE SLIGHTLY-CLOUDY; BILIRUBIN,URINE NEGATIVE (NEGATIVE); COLOR,URINE YELLOW; GLUCOSE, URINE NEGATIVE (NEGATIVE); KETONES,URINE 80 mg/dL (NEGATIVE); LEUKOCYTE ESTERASE,URINE NEGATIVE (NEGATIVE); NITRITE,URINE NEGATIVE (NEGATIVE); PROTEIN,URINE 30 mg/dL (NEGATIVE); URINE SPECIFIC GRAVITY 1.026; UROBILINOGEN,URINE NEGATIVE mg/dL (<2.0)
[2019-02-02 12:38] LABS: ALBUMIN 5.2 g/dL (3.5-5.0); ALKALINE PHOSPHATASE 61 U/L (38-126); ANION GAP 13 (5-19); ASPARTATE AMINO TRANSFERASE 22 U/L (14-36); BILIRUBIN,DIRECT 0.2 mg/dL (0.0-0.4); BILIRUBIN,TOTAL 0.7 mg/dL (0.2-1.3); BLOOD UREA NITROGEN 10 mg/dL (7-20); CALCIUM 10.5 mg/dL (8.4-10.2); CARBON DIOXIDE 23 mmol/L (22-30); CHLORIDE 101 mmol/L (98-107); GLUCOSE 89 mg/dL (75-110); POTASSIUM 4.3 mmol/L (3.6-5.0); TOTAL PROTEIN 8.2 g/dL (6.3-8.2)
--- NOTE | 2019-02-02 14:25 | ER Document Report ---
ED General - General Chief Complaint: Nausea/Vomiting Stated Complaint: VOMITING Time Seen by Provider: 02/02/19 11:35 Notes: Patient is a G1, P0 approximately 6 weeks female presents to the emergency department for extreme nausea and vomiting. Patient states she was seen at this facility yesterday for generalized lower abdominal cramping. States she received an ultrasound that told her "the baby was fine." States since leaving this facility she has had multiple episodes of vomiting. Patient states she is also past stool multiple times. Patient states her stool is a "regular" consistent it has not been diarrhea. Patient voices she feels as though she is dehydrated. Patient's denying any vaginal bleeding or discharge. TRAVEL OUTSIDE OF THE [place] IN LAST 30 DAYS: No - Related Data Allergies/Adverse Reactions: No Known Allergies Allergy (Verified 02/02/19 11:15) Past Medical History - General Information source: Patient - Social History Smoking Status: Current Some Day Smoker Drug Abuse: Marijuana Family History: Reviewed & Not Pertinent Patient has suicidal ideation: No Patient has homicidal ideation: No Renal/ Medical History: Denies: Hx Peritoneal Dialysis Psychiatric Medical History: Reports: Hx Depression - Immunizations Immunizations up to date: Yes Review of Systems - Review of Systems Constitutional: denies: Fever EENT: No symptoms reported Cardiovascular: No symptoms reported Respiratory: No symptoms reported Gastrointestinal: See HPI Genitourinary: See HPI Female Genitourinary: See HPI Musculoskeletal: No symptoms reported Skin: No symptoms reported Hematologic/Lymphatic: No symptoms reported Neurological/Psychological: No symptoms reported Physical Exam - Vital signs Vitals: Temp Pulse Resp BP Pulse Ox 98.2 F 78 24 H 132/78 H 99 02/02/19 11:29 02/02/19 11:29 02/02/19 11:29 02/02/19 11:02/02/19 11:29 - Notes Notes: GENERAL: Alert, interacts well. No acute distress. HEAD: Normocephalic, atraumatic. EYES: Pupils equal, round, and reactive to light. Extraocular movements intact. ENT: Oral mucosa moist, tongue midline. NECK: Full range of motion. Supple. Trachea midline. LUNGS: Clear to auscultation bilaterally, no wheezes, rales, or rhonchi. No respiratory distress. HEART: Regular rate and rhythm. No murmur ABDOMEN: Soft, non-tender. Non-distended. Bowel sounds present in all 4 quadrants. EXTREMITIES: Moves all 4 extremities spontaneously. No edema, normal radial and dorsalis pedis pulses bilaterally. No cyanosis. BACK: no cervical, thoracic, lumbar midline tenderness. No saddle anesthesia, normal distal neurovascular exam. NEUROLOGICAL: Alert and oriented x3. Normal speech. cranial nerves II through XII grossly intact PSYCH: Normal affect, normal mood. SKIN: Warm, dry, normal turgor. No rashes or lesions noted. Course - Re-evaluation Re-evalutation: 02/02/19 14:18 Laboratory 02/02/19 02/02/19 02/02/19 11:56 11:56 11:56 WBC 9.3 RBC 4.47 Hgb 13.8 Hct 40.4 MCV 90 MCH 30.9 MCHC 34.2 RDW 14.1 H Plt Count 240 Lymph % (Auto) 19.5 [place] % (Auto) 5.1 Eos % (Auto) 0.1 Baso % (Auto) 0.4 Absolute Neuts (auto) 7.0 Absolute Lymphs (auto) 1.8 Absolute Monos (auto) 0.5 Absolute Eos (auto) 0.0 Absolute Basos (auto) 0.0 Seg Neutrophils % 74.9 Sodium 137.1 Potassium 4.3 Chloride 101 Carbon Dioxide 23 Anion Gap 13 BUN 10 Creatinine 0.60 Est GFR ( Amer) > 60 Est GFR (MDRD) Non-Af > 60 Glucose 89 Calcium 10.5 H Total Bilirubin 0.7 Direct Bilirubin 0.2 Neonat Total Bilirubin Not Reportable Neonat Direct Bilirubin Not Reportable Neonat Indirect Bili Not Reportable AST 22 ALT 16 Alkaline Phosphatase 61 Total Protein 8.2 Albumin 5.2 H Urine Color YELLOW Urine Appearance SLIGHTLY-CLOUDY Urine pH 7.0 Ur Specific [place] 1.026 Urine Protein 30 H Urine Glucose (UA) NEGATIVE Urine Ketones 80 H Urine Blood NEGATIVE Urine Nitrite NEGATIVE Urine Bilirubin NEGATIVE Urine Urobilinogen NEGATIVE Ur Leukocyte Esterase NEGATIVE Urine WBC (Auto) 2 Urine RBC (Auto) 1 Squamous Epi Cells Auto 13 Urine Mucus (Auto) MOD Urine Ascorbic Acid NEGATIVE Patient's urine does show signs of dehydration, specific gravity of 1.026 with high ketones. Treated with normal saline solution in the emergency department. Patient was also given Reglan. Patient has had no further episodes of vomiting and has been able to p.o. fluids while in the emergency room. Discussed use of Unisom and vitamin B6 [id number]. Patient states she is unsure but has not followed up with [facility]. Will give phone numbers for follow-up. At this time will discharge with return precautions and follow-up recommendations. Verbal discharge instructions given a the bedside and opportunity for questions given. Medication warnings reviewed. Patient is in agreement with this plan and has verbalized understanding of return precautions and the need for primary care follow-up in the next 24-72 hours. This medical record was dictated with voice recognizing software. There may be grammatical, syntax errors that are unintended. - Vital Signs Vital signs: Temp Pulse Resp BP Pulse Ox 98.2 F 78 15 122/73 100 02/02/19 11:29 02/02/19 11:29 02/02/19 14:03 02/02/19 14:03 02/02/19 14:03 - Laboratory Result Diagrams: 02/02/19 11:56 02/02/19 11:56 Laboratory results interpreted by me: 02/02/19 02/02/19 02/02/19 11:56 11:56 11:56 RDW 14.1 H Calcium 10.5 H Albumin 5.2 H Urine Protein 30 H Urine Ketones 80 H Discharge - Discharge Clinical Impression: Vomiting during Condition: Stable Disposition: HOME, SELF-CARE Instructions: Vomiting ([facility]), ([facility]) Additional Instructions: As we discussed you have been seen and treated in the emergency department for vomiting during . You should try [id number] Unisom and vitamin B6. Please also follow-up with your primary care provider and [facility] in the next 24 to 48 hours. Please return to the emergency room for any further concerns. Forms: Return to Work Referrals: KUNAL NEVILLE MD [ACTIVE STAFF] - Follow up as needed
[2019-02-02 14:32] VITALS: BP 111/55
== END 2019-02-02 14:27 | disposition home or self-care (01) ==
LOC: ER 11:15
DX: O21.9 Vomiting of pregnancy, unspecified (principal); O26.891 Other specified pregnancy related conditions, first trimester; R10.84 Generalized abdominal pain; R10.30 Lower abdominal pain, unspecified; O99.331 Smoking (tobacco) complicating pregnancy, first trimester; Z3A.01 Less than 8 weeks gestation of pregnancy
CPT/HCPCS: 99284; 96361; 96374; 36415; 85025; 80053; 81001; J2765; J7030

== ENCOUNTER 2020-03-02 09:35 | Emergency (ER) | payer MEDICAID, OTHER ==
[2020-03-02 09:43] VITALS: BP 121/70
[2020-03-02] MEDS ORDERED: NORMAL SALINE 1000 ML 1,000 ML IV ONE (10:05)
[2020-03-02] MEDS ORDERED: KETOROLAC TROMETHAMINE INJ/PF 30 MG/1 ML SDV IV ONE (10:05)
[2020-03-02] MEDS ORDERED: DIPHENHYDRAMINE HCL 50 MG/ML VIAL IV ONE (10:05)
[2020-03-02] MEDS ORDERED: PROCHLORPERAZINE EDISYLATE INJ 10 MG/2 ML VIAL IV ONE (10:06)
--- NOTE | 2020-03-02 10:44 | ER Document Report ---
Entered by JESUS GALICIA SCRIBE 03/02/20 1017 Acting as scribe for:ANDREEA TOBIAS MD ED Headache - General Chief Complaint: Headache >24 hrs old Stated Complaint: HEADACHE Time Seen by Provider: 03/02/20 09:51 Mode of Arrival: Ambulatory Information source: Patient Notes: This 29-year-old female patient presents to the emergency department today with complaints of a headache for the last two weeks. Patient states she was given a prescription for Zoloft for her depression and she took it for 12 days, stopped taking it because she didn't think it was doing anything, and then 2-3 days after stopping she developed this headache. She reports she has taken 800 mg ibuprofen and 900 mg Tylenol for this headache with no relief. Her last menstrual period was 2 weeks ago. She denies nausea or vomiting. TRAVEL OUTSIDE OF THE [place] IN LAST 30 DAYS: No - Related Data Allergies/Adverse Reactions: No Known Allergies Allergy (Verified 02/02/19 11:15) Past Medical History - General Information source: Patient - Social History Smoking Status: Current Every Day Smoker Cigarette use (# per day): Yes - 1/2 ppd Frequency of alcohol use: None Drug Abuse: None Lives with: Family Family History: Reviewed & Not Pertinent Psychiatric Medical History: Reports: Hx Depression Surgical Hx: Negative - Immunizations Immunizations up to date: Yes Review of Systems - Review of Systems Constitutional: No symptoms reported EENT: No symptoms reported Cardiovascular: No symptoms reported Respiratory: No symptoms reported Gastrointestinal: denies: Nausea, Vomiting Genitourinary: No symptoms reported Female Genitourinary: Last menstrual period - two weeks ago Musculoskeletal: No symptoms reported Skin: No symptoms reported Hematologic/Lymphatic: No symptoms reported Neurological/Psychological: See HPI, Headaches -: Yes All other systems reviewed and negative Physical Exam - Vital signs Vitals: Temp Pulse Resp BP Pulse Ox 98.7 F 78 16 121/70 100 03/02/20 09:43 03/02/20 09:43 03/02/20 09:43 03/02/20 09:43 03/02/20 09:43 - Notes Notes: Physical Exam: General: Alert, appears uncomfortable. HEENT: Normocephalic. Atraumatic. PERRL. Extraocular movements intact. Oropharynx clear. Minor frontal sinus tenderness to palpation. No maxillary sinus tenderness to palpation. Neck: Supple. Non-tender. No cervical muscle tenderness to palpation. Respiratory: No respiratory distress. Clear and equal breath sounds bilaterally. Cardiovascular: Regular rate and rhythm. Abdominal: Normal Inspection. Non-tender. No distension. Normal Bowel Sounds. Back: No gross abnormalities. Extremities: Moves all four extremities. Upper extremities: Normal inspection. Normal ROM. Lower extremities: Normal inspection. No edema. Normal ROM. Neurological: Normal cognition. AAOx4. Normal speech. Psychological: Normal affect. Normal Mood. Skin: Warm. Dry. Normal color. Course - Re-evaluation Re-evalutation: 03/02/20 11:28 The nurse informed me the patient did not want medication for headaches, only lab work. 03/02/20 12:23 Patient CBC and Chem-12 are unremarkable. Patient's headache does not have red flag warnings. It was not sudden onset. It does not prevent sleep. There are no neurological symptoms. - Vital Signs Vital signs: Temp Pulse Resp BP Pulse Ox 98.7 F 78 16 121/70 100 03/02/20 09:43 03/02/20 09:43 03/02/20 09:43 03/02/20 09:43 03/02/20 09:43 - Laboratory Result Diagrams: 03/02/20 11:09 03/02/20 11:09 Laboratory results interpreted by me: 03/02/20 11:09 Hgb 11.8 L Hct 34.7 L RDW 15.3 H Discharge - Discharge Clinical Impression: Headache Qualifiers: Headache type: unspecified Headache chronicity pattern: unspecified pattern Intractability: not intractable Qualified Code(s): R51 - Headache Condition: Stable Disposition: HOME, SELF-CARE Additional Instructions: Headache The physician does not feel that the headache you are experiencing has a serious underlying cause. Most headaches are due to emotional stress, with resultant muscle tension (tension headache). Occasionally, headaches are secondary to changes in the blood vessels of the scalp (vascular headache and migraine headache). Sometimes, a headache is the first symptom of another developing illness, such as a viral infection. You have no evidence of stroke, bleeding, meningitis, or other serious cause of your headache. The treatment of headaches varies with the severity and cause of the pain. Not all headaches need pain shots. In fact, there is evidence that using narcotics for headaches may make them worse in the long run. The physician will determine the therapy that's in your best interest. If you develop a fever, if the headache is different from any you've previously experienced, or if the headache progressively worsens, then call your physician at once or go to the emergency room. Try taking the Fioricet as prescribed for headache. You may also add ibuprofen 600 mg every 8 hours, or 2 Aleve every 12 hours. Drink plenty of fluids and try to rest as much as possible. Follow-up with your primary care provider if not improving over the next few days. RETURN TO THE EMERGENCY ROOM IF ANY NEW OR WORSENING SYMPTOMS. Prescriptions: Butalb/Acetaminophen/Caffeine [Fioricet (50-325-40 mg) Tablet] 1 tab PO Q4H PRN #20 tab PRN Reason: I personally performed the services described in the documentation, reviewed and edited the documentation which was dictated to the scribe in my presence, and it accurately records my words and actions.
[2020-03-02 11:38] LABS: ABSOLUTE EOSINOPHILS # (AUTO) 0.1 10^3/uL (0.0-0.6); ABSOLUTE LYMPHOCYTES (AUTO) 1.9 10^3/uL (0.5-4.7); ABSOLUTE MONOCYTES (AUTO) 0.4 10^3/uL (0.1-1.4); ABSOLUTE NEUT (AUTO) 3.2 10^3/uL (1.7-8.2); BASOPHILS % (AUTO) 0.5 % (0-2); HEMATOCRIT 34.7 % (36.0-47.0); HEMOGLOBIN 11.8 g/dL (12.0-15.5); LYMPHOCYTES % (AUTO) 34.2 % (13-45); MEAN CORPUSCULAR HEMOGLOBIN 29.8 pg (27.0-33.4); MEAN CORPUSCULAR VOLUME 88 fl (80-97); MONOCYTES % (AUTO) 6.4 % (3-13); PLATELET COUNT 240 10^3/uL (150-450); RED BLOOD COUNT 3.96 10^6/uL (3.72-5.28); RED CELL DISTRIBUTION WIDTH 15.3 % (11.5-14.0); SEGMENTED NEUTROPHILS % (AUTO) 57.9 % (42-78); TOTAL CELLS COUNTED % (AUTO) 100 %; WHITE BLOOD COUNT 5.5 10^3/uL (4.0-10.5)
[2020-03-02 12:05] LABS: ALBUMIN 4.3 g/dL (3.5-5.0); ALKALINE PHOSPHATASE 62 U/L (38-126); ANION GAP 9 (5-19); ASPARTATE AMINO TRANSFERASE 20 U/L (14-36); BILIRUBIN,DIRECT 0.2 mg/dL (0.0-0.4); BILIRUBIN,TOTAL 0.6 mg/dL (0.2-1.3); BLOOD UREA NITROGEN 8 mg/dL (7-20); CALCIUM 9.6 mg/dL (8.4-10.2); CARBON DIOXIDE 27 mmol/L (22-30); CHLORIDE 105 mmol/L (98-107); GLUCOSE 94 mg/dL (75-110); POTASSIUM 3.9 mmol/L (3.6-5.0); TOTAL PROTEIN 6.8 g/dL (6.3-8.2)
== END 2020-03-02 13:03 | disposition home or self-care (01) ==
LOC: ER 09:35
DX: R51 Headache (principal); F32.9 Major depressive disorder, single episode, unspecified; T43.226A Underdosing of selective serotonin reuptake inhibitors, initial encounter; Z91.128 Patient's intentional underdosing of medication regimen for other reason; Z91.14 Patient's other noncompliance with medication regimen; F17.210 Nicotine dependence, cigarettes, uncomplicated
CPT/HCPCS: 36415; 80053; 84703; 85025; 99283